=== PATIENT | female | born 1955 | race Caucasian/White ===

== ENCOUNTER → 2016-10-28 08:08 | Outpatient (CLI) | payer MEDICARE | END | disposition home or self-care (01) | LOC: D.US 08:08 | DX: R10.11 Right upper quadrant pain (principal); R14.0 Abdominal distension (gaseous); K59.00 Constipation, unspecified ==

== ENCOUNTER 2016-12-08 19:20 | Emergency (ER) | payer MEDICARE | END 2016-12-08 21:30 | disposition home or self-care (01) | LOC: D.ER 19:20 | DX: S00.93XA Contusion of unspecified part of head, initial encounter (principal); V49.40XA Driver injured in collision with unspecified motor vehicles in traffic accident, initial encounter; Y93.89 Activity, other specified; Y92.410 Unspecified street and highway as the place of occurrence of the external cause; S39.012A Strain of muscle, fascia and tendon of lower back, initial encounter; I10 Essential (primary) hypertension; F17.200 Nicotine dependence, unspecified, uncomplicated ==

== ENCOUNTER 2017-03-10 12:06 | Emergency (ER) | payer MEDICARE | END 2017-03-10 14:30 | disposition home or self-care (01) | LOC: D.ER 12:06 | DX: R07.89 Other chest pain (principal); M79.1 Myalgia ==

== ENCOUNTER → 2017-03-17 07:35 | Outpatient (CLI) | payer MEDICARE | END | disposition home or self-care (01) | LOC: D.CT 07:35 | DX: R10.11 Right upper quadrant pain (principal) ==

== ENCOUNTER 2021-02-06 12:52 | Emergency (ER) | payer MEDICARE ==
[~2021-02-06] VITALS: Ht 170.2 cm; Wt 72.7 kg
[2021-02-06 12:56] VITALS: BP 128/73; Ht 170.2 cm; Wt 72.7 kg
[2021-02-06 13:19] LABS: BASOPHILS 0.3 % (0-2); EOSINOPHILS 1.2 % (0-7); HEMATOCRIT 40.9 % (36.0-48.0); IMMATURE GRANULOCYTES 0.3 % (0-5); LYMPHOCYTE ABS# 3.97 10x3/uL (1.18-3.74); LYMPHOCYTES 35.5 % (15-50); MCH 30.3 pg (26.0-34.0); MCHC 34.2 g/dL (31.0-37.0); MCV 88.5 fL (80.0-100.0); MEAN PLATELET VOLUME 9.8 fL (7.4-10.4); MONOCYTES 6.9 % (2-11); NEUTROPHIL ABS# 6.26 10x3/uL (1.56-6.13); NEUTROPHILS 55.8 % (40-80); RBC 4.62 10x6/uL (4.00-5.40); RDW 13.4 % (11.5-14.5); WBC 11.2 10x3/uL (4.8-10.8)
[2021-02-06 13:23] LABS: PLATELET COUNT 286 10x3/uL (130-400)
[2021-02-06 13:30] LABS: CALC OSMOLALITY 284 mosm/kg (275-300); CALCIUM 9.6 mg/dL (8.5-10.1); CARBON DIOXIDE 28.5 mmol/L (21.0-32.0); CHLORIDE - SERUM 103 mmol/L (98-107); CREATININE - SERUM 1.1 mg/dL (0.6-1.3); GLUCOSE 129 mg/dL (74-106); POTASSIUM - SERUM 3.6 mmol/L (3.5-5.1); SODIUM 140 mmol/L (136-145); UREA NITROGEN 25 mg/dL (7-18); eGFR NON AFRICAN AMERICAN 53 mL/min (90-120)
[2021-02-06 13:40] LABS: ALBUMIN 3.6 g/dL (3.4-5.0); ALKALINE PHOSPHATASE 154 U/L (30-120); ALT (SGPT) 21 U/L (10-68); AMYLASE - SERUM 79 U/L (25-115); BILIRUBIN - TOTAL 0.37 mg/dL (0.2-1.3); LIPASE 159 U/L (73-393); PROTEIN - SERUM 7.6 g/dL (6.4-8.2); TROPONIN-I < 0.017 ng/mL (0.000-0.060)
[2021-02-06 14:27] LABS: BILIRUBIN NEGATIVE (NEGATIVE); KETONE NEGATIVE (NEGATIVE); NITRITE NEGATIVE (NEGATIVE)
[2021-02-06 14:28] LABS: BACTERIA MANY HPF (NONE SEEN); SQUAMOUS EPITHELIAL 0-5 HPF (0-4)
[2021-02-06] MEDS ORDERED: ULTRAM50 MG PO (15:05)
[2021-02-06] MEDS ORDERED: OMNICEF300 MG PO (15:05)
== END 2021-02-06 15:16 | disposition home or self-care (01) ==
LOC: D.ER 12:52
PROVIDERS: Family Medicine
DX: N39.0 Urinary tract infection, site not specified (principal); N94.10 Unspecified dyspareunia; R10.30 Lower abdominal pain, unspecified; I10 Essential (primary) hypertension; Z72.0 Tobacco use